=== PATIENT | male | born 1975 | race African-American/Black ===

== ENCOUNTER 2018-03-04 06:20 | Day surgery (SDC) | payer OTHER ==
[2018-03-04] VITALS (12 sets, daily range): BP systolic 124–146; BP diastolic 72–89
[~2018-03-04] VITALS: Ht 170.2 cm; Wt 93.0 kg
[~2018-03-04 06:20] MED LIST: ceFAZolin 1gm IVPB IVPB ONE; celeBREX 200mg Cap **SURGERY PATIENTS ONLY ORAL ONE; oxyCONTIN 20mg tab ORAL ONE
[2018-03-04] MEDS ORDERED: Zemuron 50mg/5ml Inj IV ONE (06:59)
[2018-03-04] MEDS ORDERED: Bupivacaine w/Epi 0.25% 30ml Vial INJ ONE ×2 (06:59→07:11)
[2018-03-04] MEDS ORDERED: Hydromorphone 0.5mg/0.5ml inj IVP PRN (07:00)
[2018-03-04] MEDS ORDERED: Metoclopramide 10mg/2ml Inj IVP PRN (07:00)
[2018-03-04] MEDS ORDERED: Acetaminophen (Non formulary) 100 ML IV ONE (07:00)
[2018-03-04] MEDS ORDERED: fentaNYL 100 mcg/2 mL IV PRN (07:00)
[2018-03-04] MEDS ORDERED: NKM (07:07)
[2018-03-04] MEDS ORDERED: EPINEPHrine 1mg/1ml Amp ONE (07:10)
[2018-03-04] MEDS ORDERED: fentaNYL 100 mcg/2 mL IV ONE (07:19)
--- NOTE | 2018-03-04 07:20 | Pre-Procedure Note/Attestation ---
Pre-Procedure Note/Attestation Complete Prior to Procedure Planned Procedure: right Procedure Narrative: shoulder impingement Indications for Procedure Pre-Operative Diagnosis: right shoulder arthroscopy, sad Attestation I attest that I discussed the nature of the procedure; its benefits; risks and complications; and alternatives (and the risks and benefits of such alternatives ), prior to the procedure, with the patient (or the patient's legal key account representative). I attest that, if there was a reasonable possibility of needing a blood transfusion, the patient (or the patient's legal key account representative) was given the [facility] standardized written summary, pursuant to the [employer] [place] Blood Safety Act ([place] Health and Safety Code # 1645, as amended). I attest that I re-evaluated the patient just prior to the surgery and that there has been no change in the patient's H&P, except as documented below: Chris Gutierrez MD Mar 04, 2018 07:20
--- NOTE | 2018-03-04 07:20 | Operative Note - PDOC ---
Operative Note Operative Note Pre-op Diagnosis: right shoulder arthroscopy, sad Procedure: see op report Post-op Diagnosis: same as pre-op plus Operative Findings: consistent w/pre-op dx studies Anesthesia: general Specimen: none Complications: none Condition: stable Estimated Blood Loss: none Implant(s) used?: No Chris Gutierrez MD Mar 04, 2018 07:20
[2018-03-04] MEDS ORDERED: Midazolam 2mg/2ml Inj ONE (07:21)
[2018-03-04] MEDS ORDERED: NS Irrig 1000ml ONE (07:30)
[2018-03-04] MEDS ORDERED: LR 1000ml ONE (07:30)
[2018-03-04] MEDS ORDERED: Sterile Water Irrig 1000ml IRRIG ONE (07:30)
[2018-03-04] MEDS ORDERED: Propofol 200mg/20ml IV ONE (08:14)
[2018-03-04] MEDS ORDERED: ePHEDrine 50mg/ml Inj ONE (08:14)
[2018-03-04] MEDS ORDERED: Lidocaine 1% MPF 10mg/ml 5ml ONE (08:14)
[2018-03-04] MEDS ORDERED: Metoclopramide 10mg/2ml Inj ONE (08:14)
[2018-03-04] MEDS ORDERED: Ropivacaine 5mg/ml Vial 30ml INJ ONE (08:15)
[2018-03-04] MEDS ORDERED: Kenalog-40 1ml Vial ONE (08:30)
[2018-03-04] MEDS ORDERED: Glycopyrrolate 0.2mg/ml 1ml Vial ONE (08:35)
[2018-03-04] MEDS ORDERED: Neostigmine 1mg/ml 10ml Inj ONE (08:35)
--- NOTE | 2018-03-04 09:17 | Anethesia Preoperative Eval ---
Anesthesia Pre-op PMH/ROS General Date of Evaluation: Mar 04, 2018 Time of Evaluation: 07:20 Anesthesiologist: viviana ASA Score: ASA 2 Mallampati Score Class I : Soft palate, uvula, fauces, pillars visible Class II: Soft palate, uvula, fauces visible Class III: Soft palate, base of uvula visible Class IV: Only hard plate visible Mallampati Classification: Class II Surgeon: uliza Diagnosis: shoulder impingment Surgical Procedure: SAD; arthroscopy Anesthesia History: none Allergies: Coded Allergies: No Known Allergies (Unverified , 03/04/18) Patient NPO?: Yes NPO Date: Mar 03, 2018 NPO Time: 23:59 Past Medical History Cardiovascular: Denies: HTN, CAD, LA, valve dz, arrhythmia, other Pulmonary: Denies: asthma, COPD, DANTE, other Gastrointestinal/Genitourinary: Denies: GERD, CRI, ESRD, other Neurologic/Psychiatric: Denies: dementia, CVA, depression/anxiety, TIA, other Endocrine: Denies: DM, hypothyroidism, steroids, other HEENT: Denies: cataract (L), cataract (R), glaucoma, ROSEBUD (L), ROSEBUD (R), other Hematology/Immune: Denies: anemia, DVT, bleeding disorder, other Musculoskeletal/Integumentary: Denies: OA, RA, DJD, DDD, edema, other Other: obesity PSxH Narrative: none Anesthesia Pre-op Phys. Exam Physician Exam Last Vital Signs Date Time Temp Pulse Resp B/P (MAP) Pulse Ox O2 Delivery O2 Flow Rate FiO2 03/04/18 06:48 98.0 63 18 127/75 97 Room Air Constitutional: NAD Neurologic: CN 2-12 intact Respiratory: CTA Airway Exam Mallampati Classification 3 Mallampati Score: Class II MO: full Neck: thick Dentures: no upper, no lower Anesthesia Pre-op A/P Studies Pre-op Studies: EKG - sr Risk Assessment & Plan Plan: general; peripheral nerve block Pre-Antibiotics Drug: ancef Given Within 1 Hr of Incision: Yes Time Given: 07:50 Melina Carrasquillo CRNA Mar 04, 2018 09:17
--- NOTE | 2018-03-04 09:17 | Immediate Post-Op Evaluation ---
Immediate Post-Op Evalulation Immediate Post-Op Evalulation Procedure: SAD right shoulder Date of Evaluation: Mar 04, 2018 Time of Evaluation: 09:00 IV Fluids: 600 Blood Pressure Systolic: 113 Blood Pressure Diastolic: 84 Pulse Rate: 70 Respiratory Rate: 14 O2 Sat by Pulse Oximetry: 99 Temperature (Fahrenheit): 97.3 Pain Score (1-10): 0 Nausea: No Vomiting: No Complications none Patient Status: awake, reacts, patent Hydration Status: adequate Drug: ancef Given Within 1 Hr of Incision: Yes Time Given: 07:55 Melina Carrasquillo CRNA Mar 04, 2018 09:17
--- NOTE | 2018-03-04 13:21 | 48 Hour Post Anesthesia Eval ---
Post Anesthesia Evaluation Procedure: SAD right shoulder Date of Evaluation: Mar 04, 2018 Time of Evaluation: 13:21 Blood Pressure Systolic: 142 0: 78 Pulse Rate: 70 Respiratory Rate: 14 O2 Sat by Pulse Oximetry: 98 Airway: patent Nausea: No Vomiting: No If pain is > 6 Comment: 0 Hydration Status: adequate Cardiopulmonary Status: stable Mental Status/LOC: patient returned to baseline Follow-up Care/Observations: na Post-Anesthesia Complications: none Follow-up care needed: N/A Melina Carrasquillo [facility] Mar 04, 2018 13:21
[2018-03-04] MEDS ORDERED: D5 1/2NS 1,000 ML IV SCH (16:01)
[2018-03-04] MEDS ORDERED: Norco 5mg/325mg tab ORAL PRN (16:01)
[2018-03-04] MEDS ORDERED: Tylenol #3 tab (300mg/30mg) ORAL PRN (16:01)
[2018-03-04] MEDS ORDERED: HYDROmorphone 1mg/ml Carpuject SUBQ PRN (16:01)
--- NOTE | 2018-03-04 18:46 | Operative Note - Dictated ---
DATE OF OPERATION: 03/04/2018 PREOPERATIVE DIAGNOSIS: Right shoulder internal derangement, possible SLAP tear versus rotator cuff tear. POSTOPERATIVE DIAGNOSES: 1. Grade 2 superior labral tear. 2. Partial articular-sided rotator cuff tendinosis. 3. Right shoulder hypertrophic bursal tissue. PROCEDURES: 1. Right shoulder diagnostic arthroscopy and extensive debridement. 2. Right shoulder superior labral repair. 3. bursectomy SURGEON: Chris Gutierrez M.D. ANESTHESIA: Interscalene with general. INDICATION FOR PROCEDURE: The patient is a pleasant gentleman who has had progressive right shoulder pain with overhead activities. He failed conservative treatment, elected to undergo right shoulder diagnostic arthroscopy and subacromial decompression with possible repair of labrum, rotator cuff. The patient undergo operative findings. The risks, limitations, expectations, and complications of the procedure were discussed in detail. All questions were addressed. DESCRIPTION OF PROCEDURE: After informed consent was obtained, the patient was brought to the operating room. The patient was placed under interscalene and general anesthetic. The patient was then carefully placed in beach-chair position. Right shoulder was prepped and draped in sterile manner. Time-out was performed. Posterolateral stab incision was then made. Trocar was introduced into the shoulder joint. There was significant fraying along the superior labrum. Anteromedial working portal was established. The anterior labrum appeared to be intact. There was no chondral damage. Subscap was intact. In undersurface of the rotator cuff, there was some tendinosis, but no footprint of the supraspinatus or infraspinatus. The superior labrum was debrided down to a nice tissue. The superior glenoid was debrided to soft tissue to create a nice bleeding bed. Novi was then placed along with arthroscopic knot to secure the superior labrum back to the glenoid. Once that was done, the camera was placed in subacromial space. There was hypertrophic bursal tissue that was removed. Once that was done, the bursal side of the rotator cuff was evaluated and noted to be intact. There is no irritation along the CA ligament. Therefore a formal acromioplasty was not performed. At this point, the instruments were removed. Portal sites was closed using 3-0 Monocryl sutures. Steri-Strips and a sterile dressing were applied. The patient awoken and taken to recovery room with stable vital signs. ESTIMATED BLOOD LOSS: Minimal. COMPLICATIONS: None. SPECIMENS: None. IMPLANTS: Biomet Daniel anchor. Chris Gutierrez M.D. DR: Rosalind JOB#: [id number] CC:
== END 2018-03-04 11:45 | disposition home or self-care (01) ==
LOC: SUR 06:20
DX: S43.431A Superior glenoid labrum lesion of right shoulder, initial encounter (principal); M75.91 Shoulder lesion, unspecified, right shoulder; E66.9 Obesity, unspecified
CPT/HCPCS: 29807; J0171; J0690; J2250; J2405; J2704; J2710; J2765; J2795; J3010; J3301; 94003; 94150